=== PATIENT | male | born 1970 | race Caucasian/White ===

== ENCOUNTER 2017-12-21 09:32 | Emergency (ER) | payer SELFPAY ==
--- NOTE | 2017-12-21 10:11 | ED Physician Documentation ---
General Adult - HISTORIAN Historian: patient - HPI Stated Complaint: wound problem Chief Complaint: General Adult Onset: days ago Timing: still present Severity: moderate Further Comments: yes (Pt is a 47 yo male who has a lesion on his L wrist. Pt states that he fell onto a glass bottle about 10 days ago. Pt had his wound closed in [place], but the wound somehow got reoppened, with the sutures still in the middle of this open wound. Pt says tetanus is utd. Pt is apparently homeless.) - ROS CONST: no problems EYES/ENT: none CVS/RESP: none GI/: none MS/SKIN/LYMPH: other (wound L wrist, opened suture site) - PAST HX Past History: other (drug use, methamphetimines) Allergies/Adverse Reactions: Allergies Allergy/AdvReac Type Severity Reaction Status Date / Time No Known Allergies Allergy Unverified 12/21/17 10:17 Home Medications: Ambulatory Orders Medication Instructions Recorded Cephalexin [Keflex] 500 mg PO Q8H #30 capsule 12/21/17 - SOCIAL HX Smoking History: cigarettes Drug Use: methamphetamines - FAMILY HX Family History: No - REVIEWED ASSESSMENTS Nursing Assessment Reviewed: Yes Vitals Reviewed: Yes Progress - Progress Progress: 4 sutures removed from center of wound, these were crusted over. Wound must now close by secondary intention. Pt says tetanus is utd. Wound cleaned and dressed. Rx Keflex 500 mg po tid x 10 days, first dose in ER. General Adult Physical Exam - PHYSICAL EXAM GENERAL APPEARANCE: no distress NECK: normal inspection, supple RESPIRATORY: no resp distress, chest non-tender CVS: reg rate & rhythm, heart sounds normal BACK: normal inspection, no CVA tenderness SKIN: other (lesion, L wrist, 2 cm diameter, erythema around margins, an open sutured wound) EXTREMITIES: non-tender, normal range of motion, no evidence of injury NEURO: oriented X3, motor nml, sensation nml Discharge Clincal Impression: wound recheck, suture removal Prescriptions: Cephalexin [Keflex] 500 mg PO Q8H #30 capsule Referrals: Primary Doctor,No [Primary Care Provider] - Condition: Stable Disposition: 01 HOME, SELF-CARE Decision to Admit: NO Decision Time: 10:44
[2017-12-21] MEDS ORDERED: CEPHALEXIN 250 MG CAPSULE PO ONE (10:29)
[2017-12-21 10:41] VITALS: BP 130/90
== END 2017-12-21 10:40 | disposition home or self-care (01) ==
LOC: ED 09:32
DX: S61.502A Unspecified open wound of left wrist, initial encounter (principal); Z48.02 Encounter for removal of sutures; W25.XXXA Contact with sharp glass, initial encounter; Y99.9 Unspecified external cause status
CPT/HCPCS: 99283

== ENCOUNTER 2018-02-15 07:37 | Emergency (ER) | payer SELFPAY ==
[2018-02-15 08:25] LABS: eGFR (African) > 60; eGFR (Non-African) > 60
[2018-02-15 08:35] LABS: APPEARANCE,URINE CLEAR (CLEAR); COLOR,URINE YELLOW (YELLOW); OCCULT BLOOD,URINE NEGATIVE (NEGATIVE); UROBILINOGEN URINE 0.2 Eu (0.2-1.0)
[2018-02-15 08:37] LABS: CANNABINOIDS NON NEGATIVE ng/mL (< 50); METHYLENEDIOXYMETHAMPHETAMINE NEGATIVE ng/mL (<500)
[2018-02-15 08:47] LABS: BASOPHILS % 0.3 (0.0-1.5); EOSINOPHILS % 1.7 % (0.0-6.8); MEAN CORPUSCULAR HEMOGLOBIN 31.6 pg (28.0-34.0); MEAN CORPUSCULAR VOLUME 96.1 fl (80.0-100.0); MONOCYTES % 5.4 % (0.0-11.0); NEUTROPHILS # 6.4 # k/uL (1.4-7.7)
--- NOTE | 2018-02-15 09:32 | ED Physician Documentation ---
Chest Pain - HISTORIAN Historian: patient - HPI Stated Complaint: Chest pain Chief Complaint: Chest Pain Additional Information: left of sternum with radiation down left arm Timing: sudden onset Duration: sudden-onset Last known Well Date: 02/15/18 Last Known Well Time: 07:00 Context: other (drug use) Severity: moderate Quality: tightness Chest Pain Radiation: arms (left) Chest Pain Signs/Symptoms: denies: nausea, vomiting, diaphoresis Worsened By: nothing Relieved By: nothing Further Comments: no - ROS CONST: none MS/LYMPH: none GI/: none EYES/ENT: none SKIN/ENDO: none NEURO/PSYCH: none - PAST HX MS risk factors: other (drug use) DVT/PE Risk Factors: other (drug use) Neuro deficit: none GI disease: none Lung disease: COPD Surgeries/Procedures: none Immunizations: referred to PCP Allergies/Adverse Reactions: Allergies Allergy/AdvReac Type Severity Reaction Status Date / Time No Known Allergies Allergy Verified 02/15/18 07:51 Home Medications: Ambulatory Orders Medication Instructions Recorded NK [NK] 02/15/18 - SOCIAL HX Smoking History: cigarettes Alcohol Use: none Drug Use: marijuana, methamphetamines - FAMILY HX Family HX: none - VITAL SIGNS Vital Signs: Vital Signs Temp Pulse Resp BP Pulse Ox 130/90 12/21/17 10:40 - REVIEWED ASSESSMENTS Nursing Assessment Reviewed: Yes Vitals Reviewed: Yes Progress - Results/Orders Results/Orders: cbc, cmp, ua, uds, trop, bnp, chest ct and ekg ordered - Progress Progress: pt. stable entire time in er Critical Care Note - Critical Care Note Total Time (mins): 0 ED Results Lab/Radiology - Lab Results Lab Results: Lab Results 02/15/18 02/15/18 02/15/18 08:10 08:10 08:00 WBC RBC Hgb Hct MCV MCH MCHC RDW Plt Count Neut % (Auto) Lymph % (Auto) [place] % (Auto) Eos % (Auto) Baso % (Auto) Neut # (Auto) Lymph # (Auto) [place] # (Auto) Eos # (Auto) Baso # (Auto) Reactive Lymphs % Reactive Lymphs # PT INR APTT Sodium Potassium Chloride Carbon Dioxide BUN Creatinine Estimated Creat Clear Est GFR ( Amer) Est GFR (Non-Af Amer) Glucose Calcium Total Bilirubin AST ALT Alkaline Phosphatase Troponin I < 0.03 ng/mL L ng/mL (0.03-0.06) NT-Pro-B Natriuret Pep 65.1 pg/mL pg/mL (15.0-125.0) Total Protein Albumin Urine Color Yellow (YELLOW) Urine Appearance Clear (CLEAR) Urine pH 7.0 (5.0 - 8.0) Ur Specific [place] 1.025 (1.010-1.030) Urine Protein Negative mg/dL mg/dL (NEGATIVE) Urine Ketones Negative mg/dL mg/dL (NEGATIVE) Urine Occult Blood Negative (NEGATIVE) Urine Nitrite Negative (NEGATIVE) Urine Bilirubin Negative (NEGATIVE) Urine Urobilinogen 0.2 Eu Eu (0.2-1.0) Ur Leukocyte Esterase Negative (NEGATIVE) Urine Glucose Negative mg/dL mg/dL (NEGATIVE) Opiates Screen Negative ng/mL ng/mL (<300) Oxycodone Screen Negative ng/mL ng/mL (<100) Methadone Screen Negative ng/mL ng/mL (<200) Ur Barbiturates Screen Negative ng.mL ng.mL (<200) Tricyclic Antidepress Negative ng/mL ng/mL (<300) Phencyclidine Screen Negative ng/mL ng/mL (< 25) Amphetamines Screen Non negative ng/mL H ng/mL (<500) U Methamphetamines Scrn Non negative ng/mL H ng/mL (<500) MDMA Negative ng/mL ng/mL (<500) Benzodiazepines Screen Negative ng/mL ng/mL (<150) Urine Cocaine Screen Negative ng/mL ng/mL (<150) U Cannabinoids Screen Non negative ng/mL H ng/mL (< 50) 02/15/18 02/15/18 02/15/18 08:00 08:00 08:00 WBC 9.10 K/ul K/ul (4.00-12.00) RBC 4.67 M/ul M/ul (3.90-5.20) Hgb 14.8 g/dL g/dL (12.0-18.0) Hct 44.9 % % (37.0-53.0) MCV 96.1 fl fl (80.0-100.0) MCH 31.6 pg pg (28.0-34.0) MCHC 32.9 g/dL g/dL (30.0-36.0) RDW 13.5 % % (11.3-14.3) Plt Count 262 K/mm3 K/mm3 (130-400) Neut % (Auto) 70.4 % % (39.0-79.0) Lymph % (Auto) 20.3 % % (16.0-50.0) [place] % (Auto) 5.4 % % (0.0-11.0) Eos % (Auto) 1.7 % % (0.0-6.8) Baso % (Auto) 0.3 (0.0-1.5) Neut # (Auto) 6.4 # k/uL # k/uL (1.4-7.7) Lymph # (Auto) 1.8 # k/uL # k/uL (0.6-4.0) [place] # (Auto) 0.5 # k/uL # k/uL (0.0-0.9) Eos # (Auto) 0.2 # k/uL # k/uL (0.0-0.6) Baso # (Auto) 0.0 # k/uL # k/uL (0.0-0.5) Reactive Lymphs % 1.9 % % (0.0-5.0) Reactive Lymphs # 0.2 # k/uL # k/uL (0.0-0.8) PT 12.1 Seconds H Seconds (9.4-11.6) INR 1.15 (0.9-1.2) APTT 26.1 Seconds Seconds (24.5-32.8) Sodium 140 mmol/L mmol/L (136-145) Potassium 3.5 mmol/L mmol/L (3.5-5.1) Chloride 102 mmol/L mmol/L (98-107) Carbon Dioxide 26 mmol/L mmol/L (22-30) BUN 10 mg/dL mg/dL (9-20) Creatinine 0.60 mg/dL L mg/dL (0.66-1.25) Estimated Creat Clear 156 Est GFR ( Amer) > 60 (60 - ) Est GFR (Non-Af Amer) > 60 (60 - ) Glucose 91 mg/dL mg/dL (74-106) Calcium 9.3 mg/dL mg/dL (8.4-10.2) Total Bilirubin 0.7 mg/dL mg/dL (0.2-1.3) AST 30 U/L U/L (15-46) ALT 48 U/L U/L (13-69) Alkaline Phosphatase 66 U/L U/L (38-126) Troponin I NT-Pro-B Natriuret Pep Total Protein 6.7 g/dL g/dL (6.3-8.2) Albumin 3.9 g/dL g/dL (3.5-5.0) Urine Color Urine Appearance Urine pH Ur Specific [place] Urine Protein Urine Ketones Urine Occult Blood Urine Nitrite Urine Bilirubin Urine Urobilinogen Ur Leukocyte Esterase Urine Glucose Opiates Screen Oxycodone Screen Methadone Screen Ur Barbiturates Screen Tricyclic Antidepress Phencyclidine Screen Amphetamines Screen U Methamphetamines Scrn MDMA Benzodiazepines Screen Urine Cocaine Screen U Cannabinoids Screen - Radiology Radiology Impressions: chest ct neg for pe or infiltrate - Orders Orders: ED Orders Category Date Time Status CT CHEST W/ CONTRAST Stat Exams 02/15/18 Ordered AMPHETAMINES,QUANT,URINE Routine Lab 02/15/18 08:10 Received CBC/PLATELET/DIFF Routine Lab 02/15/18 08:00 Completed CMP Routine Lab 02/15/18 08:00 Completed DRUG SCREEN URINE MEDICAL ONLY Routine Lab 02/15/18 08:10 Completed NT-proBNP Routine Lab 02/15/18 08:00 Completed PT-INR Routine Lab 02/15/18 08:00 Completed PTT Routine Lab 02/15/18 08:00 Completed TROPONIN I (cTnI) Routine Lab 02/15/18 08:00 Completed UA MACRO DIP ONLY Routine Lab 02/15/18 08:10 Completed EKG WITH COMPARISON Routine Ther 02/15/18 Ordered Chest Pain Physical Exam - EXAM General Appearance: no acute distress, alert EENT: eye inspection normal, ENT inspection normal, pharynx normal, no signs of dehydration, ALEXANDER, no nystagmus, TM's nml Neck: nml inspection, no carotid bruit Respiratory: no resp. distress, chest non-tender, nml breath sounds CVS: reg. rate & rhythm, no murmur Abdomen: soft, no organomegaly, normal bowel sounds, tenderness (epigartrium) Skin: warm/dry, normal color Extremities: non-tender, normal range of motion, no evidence of injury, no edema Neuro: oriented X3, CN's nml as tested, motor nml, sensation nml, mood/affect nml, cognition normal Discharge Clincal Impression: Methamphetamine abuse Referrals: Primary Doctor,No [Primary Care Provider] - 2 Days Comments: Discharged home in stable condition with info. on rehab programs Condition: Stable Disposition: 01 HOME, SELF-CARE Decision to Admit: NO Decision Time: 09:31
[2018-02-15 09:53] VITALS: BP 128/92
--- NOTE | 2018-02-15 18:05 | Diagnostic Imaging Report ---
JOHN PAUL KOLB [facility] [address] [facility].[address] [address] Report Submission Date: February 15, 2018 9:08:30 AM CDT Patient Study Name: ROSALIE TOVAR Date: February 15, 2018 8:34:06 AM CDT Modality Type: CT\SR Gender: M Description: CT CHEST W/ CONTRAST : 70 Institution: [facility] Physician: JOHN PAUL KOLB CT chest with contrast History: PE PROTOCOL, CHEST PAIN SINCE EARLY THIS AM Multiple axial images of the chest are submitted with reconstructions No prior comparison studies Bibasilar atelectasis. No pleural effusion or pneumothorax. No pericardial effusion. No PE. Subcentimeter mediastinal lymph nodes are present. Limited views of the upper abdomen demonstrate no biliary dilatation. Both kidneys enhance symmetrically, incompletely imaged. Subcentimeter paraaortic lymph nodes are present. No acute osseous pathology Impression: 1. No PE. No pericardial effusion. No evidence of aortic aneurysm or dissection 2. Bibasilar atelectasis. No pleural effusion. Thoracic spine degenerative changes. Electronically signed on February 15, 2018 9:08:30 AM CDT by: Chichi CASILLAS
[2018-02-21 15:51] LABS: CANNABINOIDS CONFIRMATION 15 ng/mL (<15)
== END 2018-02-15 09:52 | disposition home or self-care (01) ==
LOC: ED 07:37
DX: F15.10 Other stimulant abuse, uncomplicated (principal)
CPT/HCPCS: 71260; 80053; 80377; 81002; 83880; 84484; 85025; 85610; 85730; 99284; 99285; Q9967; G0481

== ENCOUNTER 2018-03-25 05:05 | Emergency (ER) | payer SELFPAY ==
[2018-03-25] MEDS ORDERED: 0.9 % SODIUM CHLORIDE 1,000 ML IV ONE ×2 (05:08→06:06)
[2018-03-25] MEDS ORDERED: ASPIRIN 81 MG CHEW TAB ONE ×2 (05:09)
[2018-03-25] MEDS ORDERED: IPRATROPIUM/ALBUTEROL SULFATE 3 ML AMPUL.NEB NEB ONE (05:09)
--- NOTE | 2018-03-27 18:55 | Diagnostic Imaging Report ---
TERESA [place] [facility] [address] [facility] [address] [place], [place]. [address] Report Submission Date: Mar 26, 2018 5:02:20 PM CDT Patient Study Name: ROSALIE TOVAR Date: Mar 25, 2018 5:37:41 AM CDT Modality Type: DX Gender: M Description: CHEST : 70 Institution: [facility] Physician: TERESA MO Examination: PA and lateral chest. History: Evaluate lung qureshi. CHEST PAIN; SOA (Hx) Comparison exam: None provided. Findings: PA lateral chest demonstrate a normal cardiac and mediastinal silhouette. No focal infiltrate. No blunting of the costophrenic margins. Osseous structures are appropriate for age. Impression: No acute pulmonary process. Electronically signed on Mar 26, 2018 5:02:20 PM CDT by: Dillan CASILLAS
[2018-03-28 12:31] LABS: CANNABINOIDS NON NEGATIVE ng/mL (< 50); METHYLENEDIOXYMETHAMPHETAMINE NEGATIVE ng/mL (<500)
[2018-03-28 12:33] LABS: APPEARANCE,URINE CLEAR (CLEAR); COLOR,URINE YELLOW (YELLOW); OCCULT BLOOD,URINE NEGATIVE (NEGATIVE); PH URINE 5.5 (5.0 - 8.0); UROBILINOGEN URINE 0.2 Eu (0.2-1.0)
[2018-03-28 12:46] LABS: eGFR (African) > 60; eGFR (Non-African) > 60
[2018-03-28 12:47] LABS: MEAN CORPUSCULAR HEMOGLOBIN 31.4 pg (28.0-34.0); MEAN CORPUSCULAR VOLUME 93.8 fl (80.0-100.0)
[2018-03-28 12:48] LABS: BASOPHILS % 0.8 (0.0-1.5); NEUTROPHILS # 6.9 # k/uL (1.4-7.7)
[2018-04-02 12:17] LABS: CANNABINOIDS CONFIRMATION NEGATIVE
== END 2018-03-25 07:40 | disposition home or self-care (01) ==
LOC: ED 05:05
DX: R07.9 Chest pain, unspecified (principal); F15.90 Other stimulant use, unspecified, uncomplicated
CPT/HCPCS: 71046; 80053; 80377; 81002; 82550; 82553; 83880; 84484; 85025; 93005; 96365; 96366; 99284; J7030; G0481; S1016

== ENCOUNTER 2018-04-01 22:16 | Emergency (ER) | payer SELFPAY ==
[2018-04-01] MEDS ORDERED: 0.9 % SODIUM CHLORIDE 1,000 ML IV ONE (23:03)
--- NOTE | 2018-04-01 23:06 | ED Physician Documentation ---
General Adult - HISTORIAN Historian: patient - HPI Chief Complaint: General Adult Further Comments: yes (47 year old male patient presents to the Er. Patient with multiple complaints to nursing. C/O cramping and generalized discomfort to this provider. States he worked outside all day long in the heat, "I think I 'm dehydrated. I haven't eaten". Patient seen in ER on 03/25/18 after methampthetamine relapse.) - ROS CONST: other (fatigue; generalized discomfort) EYES/ENT: none CVS/RESP: none GI/: none MS/SKIN/LYMPH: none NEURO/PSYCH: denies: headache - PAST HX Past History: other (polypharmacy abuse) Allergies/Adverse Reactions: Allergies Allergy/AdvReac Type Severity Reaction Status Date / Time No Known Allergies Allergy Verified 04/01/18 23:09 Home Medications: Ambulatory Orders Medication Instructions Recorded NK [NK] 02/15/18 - SOCIAL HX Smoking History: cigarettes Drug Use: cocaine (hx of abuse), heroin (hx of abuse), methamphetamines (abuse) - FAMILY HX Family History: No - VITAL SIGNS Vital Signs: Vital Signs Temp Pulse Resp BP Pulse Ox 128/92 02/15/18 09:52 - REVIEWED ASSESSMENTS Nursing Assessment Reviewed: Yes Vitals Reviewed: Yes Progress - Progress Progress: 1L Ns given and tylenol po Patient states he feels better at discharge. ED Results Lab/Radiology - Orders Orders: ED Orders Category Date Time Status Place IV Lock 1T Care 04/01/18 23:03 Ordered BMP [BMP] Stat Lab 04/01/18 Ordered CBC/PLATELET/DIFF Stat Lab 04/01/18 23:03 Ordered Urine drug screen [DRUG SCREEN URINE MEDICAL ONLY] Stat Lab 04/01/18 22:49 Ordered 0.9 % Sodium Chloride [Normal Saline] 1,000 ml Med 04/01/18 23:03 Ordered IV NOW General Adult Physical Exam - PHYSICAL EXAM GENERAL APPEARANCE: [id number] N EENT: eye inspection normal, ALEXANDER RESPIRATORY: no resp distress, chest non-tender, breath sounds normal CVS: reg rate & rhythm, heart sounds normal, equal pulses, no murmur, no gallop , PMI nml, no JVD, no friction rub, 24 ABDOMEN: soft, no organomegaly, normal bowel sounds, no abdominal bruit, no distension SKIN: normal color, warm/dry, NR, INT, PAL, DR EXTREMITIES: non-tender, normal range of motion, no evidence of injury, no edema , J, [employer]ASSIS NEURO: oriented X3, CN's nml as tested, motor nml, sensation nml, mood/affect nml Discharge Clincal Impression: Methamphetamine abuse, Dehydration, mild Referrals: Primary Doctor,No [Primary Care Provider] - 2 Days Condition: Stable Disposition: 01 HOME, SELF-CARE Decision to Admit: NO Decision Time: 23:26
[2018-04-01] MEDS ORDERED: ACETAMINOPHEN 500 MG TABLET PO ONE (23:10)
[2018-04-01 23:13] LABS: BASOPHILS % 0.5 (0.0-1.5); EOSINOPHILS % 0.7 % (0.0-6.8); MEAN CORPUSCULAR HEMOGLOBIN 31.4 pg (28.0-34.0); MEAN CORPUSCULAR VOLUME 94.5 fl (80.0-100.0); MONOCYTES % 6.5 % (0.0-11.0); NEUTROPHILS # 9.5 # k/uL (1.4-7.7)
[2018-04-01 23:18] LABS: eGFR (African) > 60; eGFR (Non-African) 53
[2018-04-02 00:14] VITALS: BP 127/86
[2018-04-02 07:46] LABS: CANNABINOIDS NEGATIVE ng/mL (< 50); METHYLENEDIOXYMETHAMPHETAMINE NEGATIVE ng/mL (<500)
[2018-04-02 07:50] LABS: APPEARANCE,URINE CLEAR (CLEAR); COLOR,URINE AMBER (YELLOW); OCCULT BLOOD,URINE NEGATIVE (NEGATIVE); PH URINE 5.5 (5.0 - 8.0)
== END 2018-04-02 00:10 | disposition home or self-care (01) ==
LOC: ED 22:16
DX: E86.0 Dehydration (principal); F15.10 Other stimulant abuse, uncomplicated
CPT/HCPCS: 80048; 80377; 81002; 85025; J7030; 96360; 99284; G0481; S1016

== ENCOUNTER 2019-10-09 23:02 | Emergency (ER) | payer SELFPAY ==
--- NOTE | 2019-10-09 23:14 | ED Physician Documentation ---
General Adult - HISTORIAN Historian: patient - HPI Stated Complaint: anxiety Chief Complaint: General Adult Onset: hours Timing: still present Severity: moderate Further Comments: yes (Pt is a 49 yo male from [facility] homeless facility, with c/o anxiety/depression. Pt is rx'd meds for depression and for HTN but has not been taking these. Pt states that he is having anxiety and that he is not liked at [facility]. He states that he has been at [facility] for 1 day. Pt states he is supposed to start rehab tomorrow in [place]. Pt denies that he wishes to harm himself or others.) - ROS CONST: no problems EYES/ENT: none CVS/RESP: none GI/: none MS/SKIN/LYMPH: none NEURO/PSYCH: other (anxiety) - PAST HX Past History: hypertension, other (anxiety/depression, hx polysubstance abuse--cocaine, methamphetamin, heroin) Allergies/Adverse Reactions: Allergies Allergy/AdvReac Type Severity Reaction Status Date / Time No Known Allergies Allergy Verified 10/09/19 23:24 Home Medications: Ambulatory Orders Medication Instructions Recorded NK 10/09/19 - SOCIAL HX Smoking History: cigarettes Drug Use: other (hx cocaine, methamphetamine, heroin) - FAMILY HX Family History: No - VITAL SIGNS Vital Signs: Vital Signs Temp Pulse Resp BP Pulse Ox 127/86 04/02/18 00:10 - REVIEWED ASSESSMENTS Nursing Assessment Reviewed: Yes Vitals Reviewed: Yes Progress - Progress Progress: Ativan 1 mg po Pt asked to make a phone call, and called someone to come to get him. The other republican evidently refused to come. Pt became upset and left the ER without waiting for discharge. General Adult Physical Exam - PHYSICAL EXAM GENERAL APPEARANCE: moderate distress (anxious/tearful) EENT: eye inspection normal, pharynx normal NECK: normal inspection, supple RESPIRATORY: no resp distress, chest non-tender, breath sounds normal CVS: reg rate & rhythm, heart sounds normal BACK: normal inspection SKIN: warm/dry, normal color EXTREMITIES: non-tender, normal range of motion, no evidence of injury NEURO: oriented X3, motor nml, sensation nml, other (anxious) Discharge Clincal Impression: Anxiety Referrals: Primary Doctor,No [Primary Care Provider] - Condition: Fair Disposition: AGAINST MEDICAL ADVICE Decision to Admit: NO Decision Time: 00:09
[2019-10-09 23:25] VITALS: BP 143/97
[2019-10-09] MEDS ORDERED: LORazepam 0.5 MG TABLET PO ONE (23:25)
== END 2019-10-09 23:50 | disposition left against medical advice (07) ==
LOC: ED 23:02
DX: F41.9 Anxiety disorder, unspecified (principal)
CPT/HCPCS: 99282; 99283